=== PATIENT | male | born 1965 | race African-American/Black ===

== ENCOUNTER 2019-05-27 17:42 | Inpatient (IN) | payer OTHER ==
--- NOTE | 2019-05-27 17:48 | PDOC ---
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 The patient is asymptomatic at present, denying headache, visual or focal neurologic symptoms, chest pain, shortness of breath, abdominal pain, nausea, vomiting, diarrhea. Family history is significant for cardiac disease. - Physicial Exam PE: 05/27/19 18:14 Physical exam: Alert and oriented well-developed well-nourished no acute distress cooperative Afebrile, vital signs normal except for a significantly elevated blood pressure of 213/146. PERRLA, fundi benign, ENT clear Neck supple without bruit mass or nodes Chest clear with full breath sounds bilaterally S1 normal, slightly increased S2, regular without murmur rub or gallop pulses full and symmetric no JVD or edema no bruits Abdomen soft nontender without mass organomegaly Neurological C2 to 12 intact. Strength full and symmetric. No focal sensorimotor deficits. Gait stable and unimpaired Extremities no CCE Skin clear, no rash, adequate turgor and wet mucous membranes - Medical Decision Making 05/28/19 07:08 Assessment: Poorly controlled hypertension, on multiple medications in the past without clear evidence of control. Hypertensive urgency, but asymptomatic and no sign that there is an effect on end organs. Plan: Gradually lower blood pressure to acceptable level. Admit for observation and adequate blood pressure control. Counseling, cardiology consult , and further evaluation and treatment.
[2019-05-27 18:05] LABS: MCH 29.7 pg (25.7-33.7); WHITE BLOOD COUNT 3.5 K/mm3 (4.0-10.8)
[2019-05-27] MEDS ORDERED: LABETALOL HCL 5 MG/1 ML (100MG/20 ML VIAL) ONE (18:08)
[2019-05-27] MEDS ORDERED: amLODIPine BESYLATE 5 MG TABLET (FP) ONE (18:08)
[2019-05-27 18:09] LABS: HEMATOCRIT 42.4 % (35.4-49); HEMOGLOBIN 13.9 GM/dl (11.7-16.9); MCHC 32.8 g/dl (32.0-35.9); MEAN CELL VOLUME 90.7 fl (80-96); MEAN PLT VOLUME 12.6 fl (7.5-11.1); PLATELET COUNT 159 K/MM3 (134-434); RBC 4.68 M/mm3 (4.00-5.60); RDW 12.6 % (11.9-15.9)
[2019-05-27] MEDS ORDERED: amLODIPine BESYLATE 5 MG TABLET (FP) PO ONE (18:09)
[2019-05-27] MEDS ORDERED: LABETALOL HCL 5 MG/1 ML (100MG/20 ML VIAL) IVPUSH ONE (18:10)
--- NOTE | 2019-05-27 18:13 | HP ---
CHIEF COMPLAINT: Hypertension PCP: Charli HISTORY OF PRESENT ILLNESS: 54 year-old male with a PMH significant for HTN, HLD, CKD, and chronic low back pain. Patient presented to his PCP's office today with a complaint of bilateral flank/lower back pain R>L. Patient thought it might be his kidneys. His BP was 230/150 and he was told to come directly to the ED. Patient states he has been seeing doctors for years on on many medications to control his blood pressure but never with significant success. About a year ago he had a full renal workup which was unremarkable. He is not presently on any blood pressure meds. Patient denies chest pain, palpitations, SOB, RODRIGUEZ, diaphoresis, lower extremity edema. He denies headache, dizziness, lightheadedness, unsteady gait, or other focal neurological deficit. He states when he works an 80-week, he will develop visual changes which he attributes to fatigue. 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; works out regularly; 4 children; lives alone in [place] Smoking: quit 1988, smoked for 8-9 years Alcohol: never Drugs: quit marijuana and cocaine use in 1988; denies ever injecting drugs; denies steroid use Family history: Mother: 67 from toxic effects of anti-psychotics for bipolar disease; father alive 82 with HTN; sister age 40 kidney failure; brother alive 59 with HTN; brother 57 a&w No family history of DM, cancer, UT, CVA Allergies No Known Allergies Allergy (Verified 05/27/19 17:43) HOME MEDICATIONS: Home Medications Medication Instructions Recorded NK [No Known Home Medication] 05/27/19 REVIEW OF SYSTEMS CONSTITUTIONAL: Absent: fever, chills, diaphoresis, generalized weakness, malaise, loss of appetite, weight change HEENT: Absent: rhinorrhea, nasal congestion, throat pain, throat swelling, difficulty swallowing, mouth swelling, ear pain, eye pain, visual changes CARDIOVASCULAR: Absent: chest pain, syncope, palpitations, irregular heart rate, lightheadedness , peripheral edema RESPIRATORY: Absent: cough, shortness of breath, dyspnea with exertion, orthopnea, wheezing, stridor, hemoptysis GASTROINTESTINAL: Absent: abdominal pain, abdominal distension, nausea, vomiting, diarrhea, constipation, melena, hematochezia GENITOURINARY: Absent: dysuria, frequency, urgency, hesitancy, hematuria, flank pain, genital pain MUSCULOSKELETAL: Absent: myalgia, arthralgia, joint swelling, back pain, neck pain SKIN: Absent: rash, itching, pallor HEMATOLOGIC/IMMUNOLOGIC: Absent: easy bleeding, easy bruising, lymphadenopathy, frequent infections ENDOCRINE: Absent: unexplained weight gain, unexplained weight loss, heat intolerance, cold intolerance NEUROLOGIC: Absent: headache, focal weakness or paresthesias, dizziness, unsteady gait, seizure, mental status changes, bladder or bowel incontinence PSYCHIATRIC: Absent: anxiety, depression, suicidal or homicidal ideation, hallucinations. PHYSICAL EXAMINATION Vital Signs - 24 hr 05/27/19 05/27/19 17:42 18:03 Temperature 97.5 F L Pulse Rate 76 Pulse Rate [ 76 Apical] Respiratory 18 16 Rate Blood Pressure 214/139 H Blood Pressure 213/146 H [Left Arm] O2 Sat by Pulse 100 100 Oximetry (%) GENERAL: Awake, alert, and fully oriented, in no acute distress. HEAD: Normal with no signs of trauma. EYES: Pupils equal, round and reactive to light, extraocular movements intact, sclera anicteric, conjunctiva clear. LUNGS: Breath sounds equal, clear to auscultation bilaterally. No wheezes, and no crackles. No accessory muscle use. HEART: Regular rate and rhythm, normal S1 and S2 ABDOMEN: Soft, nontender, not distended MUSCULOSKELETAL: Normal range of motion at all joints. No bony deformities or tenderness. No CVA tenderness. UPPER EXTREMITIES: 2+ pulses, warm, well-perfused. No cyanosis. No clubbing. No peripheral edema. LOWER EXTREMITIES: 2+ pulses, warm, well-perfused. No calf tenderness. No peripheral edema. NEUROLOGICAL: Cranial nerves II-XII intact. Normal speech. ASSESSMENT/PLAN 54 year-old male with a PMH significant for HTN, HLD, CKD, and chronic low back pain. Admitted for hypertensive urgency. Hypertensive urgency --continue amlodipine started in ED; start hydralazine 10mg TID --TSH, A1C --cardiology consult requested Elevated creatinine Chronic kidney disease --diagnosis of CKD in PCP chart, no previous imaging or labs available --Cr 1.5, baseline unknown --US renal in am FEN Fluids: PO intake adequate Electrolytes: replete as indicated Nutrition: low sodium DVT prophylaxis: subq heparin Dispo: continues to require inpatient care. Full code. Visit type - Emergency Visit Emergency Visit: Yes ED Registration Date: 05/27/19 Care time: The patient presented to the Emergency Department on the above date and was hospitalized for further evaluation of their emergent condition. - New Patient This patient is new to me today: Yes Date on this admission: 05/27/19 - Critical Care Critical Care patient: No
--- NOTE | 2019-05-27 18:19 | PDOC ---
History of Present Illness - General Chief Complaint: Blood Pressure Problem Stated Complaint: SENT BY PMD FOR HTN Time Seen by Provider: 05/27/19 17:47 History Source: Patient Exam Limitations: No Limitations - History of Present Illness Initial Comments: Pt is a 54 yo M, with PMH of HTN (previously on HCTZ, norvasc, benecar, clonidine), who is presenting with hypertension (250/150) from PMD's office. Pt states he was previously on HTN medications, but "none of them worked" and his BP was regularly 180/110 even taking medications consistently. Pt stopped seeing his PMD and taking medications 2 years ago. Pt was at PMD office for complaints of b/l lower back pain, as he has been lifting more at work. Pt denies any fevers/chills, headache, vision changes, syncope, chest pain, palpitations, SOB, nausea/vomiting, abdominal pain, urinary symptoms, diarrhea/ constipation, or leg swelling. Pt states he has had renal US and echo on prior visits "and was normal". Allergies: NKDA PCP: Dr. Augustin Social: Pt denies any current cigarette, alcohol, or drug use. Remote use of cocaine x1/week. Pt denies any recent travel or sick contacts. Surgical: no relevant history. Family: multiple 1st degree relatives with HTN emergency and uncontrolled HTN despite medications 05/29/19 07:29 05/29/19 07:33 05/29/19 07:39 Past History - Travel Traveled outside of the country in the last 30 days: No Close contact w/someone who was outside of country & ill: No - Past Medical History Allergies/Adverse Reactions: Allergies Allergy/AdvReac Type Severity Reaction Status Date / Time No Known Allergies Allergy Verified 05/27/19 17:43 Home Medications: Ambulatory Orders Amlodipine Besylate [Norvasc -] 5 mg PO DAILY #30 tablet 05/28/19 hydrALAZINE HCL [Apresoline -] 10 mg PO TID #90 tablet 05/28/19 COPD: No - Psycho Social/Smoking Cessation Hx Smoking History: Never smoked Hx Alcohol Use: No Drug/Substance Use Hx: No Cardiac Specific PMH - Complaint Specific PMHX Abdominal Aortic Aneurysm: No Angina: No Cardiac Arrhythmia: No Cardiac Stent: No GERD: No Myocardial Infarction: No Pacemaker: No Pulmonary Embolus: No Valvular Heart Disease: No Peripheral Vascular Disease: No Review of Systems - Review of Systems Able to Perform ROS?: Yes Is the patient limited Romansh proficient: No Constitutional: Yes: Weight Stable. No: Chills, Fever, Loss of Appetite, Malaise, Weakness HEENTM: No: Blurred Vision, Recent change in vision, Double Vision, Nose Congestion, Nose Bleeding, Throat Pain Respiratory: No: Cough, Orthopnea, Shortness of Breath Cardiac (ROS): No: Chest Pain, Edema, Irregular Heart Rate, Lightheadedness, Palpitations, Syncope, Chest Tightness ABD/GI: No: Constipated, Diarrhea, Nausea, Poor Appetite, Poor Fluid Intake, Vomiting, Abdominal cramping : Yes: Flank Pain. No: Burning, Dysuria, Frequency, Hematuria, Pain, Urgency Musculoskeletal: Yes: Back Pain. No: Joint Pain, Joint Swelling, Muscle Pain, Muscle Weakness, Neck Pain Integumentary: No: Rash Neurological: No: Headache, Numbness, Paresthesia, Seizure, Tingling, Unsteady Gait, Dizziness Psychiatric: No: Stressors, Sleep Pattern Change, Emotional Problems, Change in Appetite Endocrine: No: Increased Urine, Change in Weight Hematologic/Lymphatic: No: Anemia, Blood Clots, Easy Bleeding, Easy Bruising All Other Systems: Reviewed and Negative *Physical Exam - Vital Signs Last Vital Signs Temp Pulse Resp BP Pulse Ox 97.9 F 66 20 172/113 H 98 05/28/19 14:00 05/28/19 14:00 05/28/19 14:00 05/28/19 14:00 05/28/19 05:00 - Physical Exam Comments: HTN (214/139 on exam), pt afebrile. Pt in NAD, normal body habitus. Resting comfortably on the stretcher. Pt alert and oriented x3. 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 No midline spinal tenderness, step-offs, or crepitus. +Reproducible paraspinal TTP over R lower back. Head normocephalic, atraumatic. Eyes PERRLA, EOMI. Oropharynx without erythema or exudates, no LAD b/l. No nasal congestion. Hearing intact. Clear heart sounds, S1/S2, no JVD, b/l pedal edema, or heart murmur. Clear lung sounds, no respiratory distress, wheezes, crackles, or accessory muscle use. No abdominal or CVA tenderness to palpation, no rebound, no guarding. Abdomen soft, non-distended, and with normoactive bowel sounds. Skin without jaundice or rash. 05/29/19 07:35 ED Treatment Course - LABORATORY CBC & Chemistry Diagram: 05/28/19 07:28 05/28/19 07:28 - ADDITIONAL ORDERS Additional order review: 05/27/19 17:58 RBC 4.68 MCV 90.7 MCHC 32.8 RDW 12.6 MPV 12.6 H Neutrophils % No Result Required. Lymphocytes % No Result Required. - Medications Given in the ED: ED Medications Discontinued Medications Generic Name Dose Route Start Last Admin Trade Name Freq PRN Reason Stop Dose Admin Amlodipine Besylate 5 mg 05/27/19 18:09 05/27/19 18:14 Norvasc - PO 05/27/19 18:10 5 mg ONCE ONE Administration Amlodipine Besylate 5 mg 05/28/19 10:00 05/28/19 09:19 Norvasc - PO 5 mg DAILY SINDY Administration Heparin Sodium (Porcine) 5,000 unit 05/28/19 06:00 05/28/19 14:57 Heparin - SQ Not Given TID SINDY Hydralazine HCl 10 mg 05/27/19 20:41 05/27/19 20:53 Apresoline Injection - IVPUSH 05/27/19 20:42 10 mg ONCE ONE Administration Hydralazine HCl 10 mg 05/27/19 22:00 05/28/19 14:56 Apresoline - PO 10 mg TID SINDY Administration Labetalol HCl 10 mg 05/27/19 18:10 05/27/19 18:14 Normodyne Injection - IVPUSH 05/27/19 18:11 10 mg ONCE ONE Administration Labetalol HCl 100 mg 05/27/19 22:00 05/27/19 21:09 Normodyne - PO 100 mg BID SINDY Administration Medical Decision Making - Medical Decision Making Pt was seen at bedside, also will be seen by attending Dr. Osei. Pt presenting with HTN from PCP office, no signs of end-organ damage (denies headache, vision changes, chest pain, urinary symptoms). Pt has uncontrolled HTN despite multiple HTN medications, although not taking currently. Pt should be admitted to telemetry for further BP control and to possibly evaluate for causes (renal US, etc). Provided 5 mg PO amlodipine and 10 mg IV labetalol for improvement of HTN. Will continue to reassess pt and monitor for symptomatic improvement. Ordered labs, ECG, UA Pt signed out to night team to follow labs and stabilize until admission. Pt resting comfortably, continues to be asymptomatic. 05/29/19 07:36 Discharge - Discharge Information Problems reviewed: Yes Clinical Impression/Diagnosis: HTN (hypertension) Qualifiers: Hypertension type: unspecified Qualified Code(s): I10 - Essential (primary) hypertension Condition: Stable - Admission Yes - Follow up/Referral - Patient Discharge Instructions - Post Discharge Activity
[2019-05-27 18:26] LABS: ALBUMIN 4.2 g/dl (3.4-5.0); BILIRUBIN,TOTAL 0.5 mg/dl (0.2-1); CALCIUM 9.3 mg/dl (8.5-10); CREATININE 1.5 mg/dl (0.55-1.3); POTASSIUM 3.8 mmol/L (3.5-5.1); TOT PROT 7.4 g/dl (6.4-8.2)
[2019-05-27] MEDS ORDERED: hydrALAZINE HCL 20 MG/ML VIAL IVPUSH ONE (20:41)
[2019-05-27] MEDS ORDERED: LABETALOL HCL 200 MG TABLET (FP) ONE (21:02)
[2019-05-27 21:59] VITALS: BMI 27.1
[2019-05-27] MEDS ORDERED: LABETALOL HCL 100 MG TABLET (FP) PO SCH (22:00)
[2019-05-27 22:14] LABS: COCAINE, UR NEGATIVE ng/ml (CUTOFF=300); METHADONE, UR NEGATIVE ng/ml (CUTOFF=300); OPIATES, URI NEGATIVE ng/ml (CUTOFF=300); PHENCYCLIDINE,URINE NEGATIVE ng/ml (CUTOFF=25); URINE AMPHETAMINES NEGATIVE ng/ml (CUTOFF=500); URINE BARBITURATES NEGATIVE ng/ml (CUTOFF=200); URINE BENZODIAZEPINES NEGATIVE ng/ml (CUTOFF=200)
[2019-05-27 23:32] LABS: ANISOCYTOSIS 1+; TARGET CELLS 1+
[2019-05-27 23:33] LABS: PLATELET ESTIMATE ADEQUATE
[2019-05-28] MEDS: hydrALAZINE HCL 10 MG TABLET PO SCH ×3 (00:06→14:56)
[2019-05-28] MEDS: HEPARIN NA (PORCINE) 5,000 UNITS/ML 1ML VIAL SQ SCH ×2 (06:54→14:57)
[2019-05-28 08:01] LABS: BASO % 0.9 % (0-2.0); EOS % 4.4 % (0-4.5); HEMATOCRIT 39.6 % (35.4-49); HEMOGLOBIN 13.2 GM/dl (11.7-16.9); LYMPH % 29.2 % (8-40); MCH 30.6 pg (25.7-33.7); MCHC 33.3 g/dl (32.0-35.9); MEAN CELL VOLUME 91.8 fl (80-96); MEAN PLT VOLUME 12.5 fl (7.5-11.1); MONO % 13.4 % (3.8-10.2); NEUT % 52.1 % (42.8-82.8); PLATELET COUNT 126 K/MM3 (134-434); RBC 4.31 M/mm3 (4.00-5.60); RDW 13.1 % (11.9-15.9); WHITE BLOOD COUNT 3.1 K/mm3 (4.0-10.8)
[2019-05-28 08:06] LABS: ALBUMIN 3.5 g/dl (3.4-5.0); BILIRUBIN,TOTAL 0.5 mg/dl (0.2-1); CREATININE 1.5 mg/dl (0.55-1.3); PHOSPHOROUS 3.5 mg/dl (2.5-4.9); POTASSIUM 3.8 mmol/L (3.5-5.1); TOT PROT 6.2 g/dl (6.4-8.2)
[2019-05-28] MEDS ORDERED: amLODIPine BESYLATE 5 MG TABLET (FP) PO SCH (10:00)
--- NOTE | 2019-05-28 12:00 | EKG ---
Test Reason : Blood Pressure : / mmHG Vent. Rate : 065 BPM Atrial Rate : 065 BPM P-R Int : 162 ms QRS Dur : 098 ms QT Int : 394 ms P-R-T Axes : 052 012 101 degrees QTc Int : 409 ms NORMAL SINUS RHYTHM T WAVE ABNORMALITY, CONSIDER LATERAL ISCHEMIA ABNORMAL ECG NO PREVIOUS ECGS AVAILABLE Confirmed by CANDY GREWAL MD ([id number]) on 05/28/2019 12:00:06 PM Referred By: MD GAMEZ Confirmed By:CANDY GREWAL MD
[2019-05-28 14:10] VITALS: BP 172/113; PULSE 66; TEMP 97.9
--- NOTE | 2019-05-28 14:55 | CON.CARD ---
Consult Consult Specialty:: Cardiology Referred by:: Medicine Reason for Consultation:: HTN - History of Present Illness Chief Complaint: HTN History of Present Illness: 54M h/o HTN, HLD, CKD p/w lower back pain worse on R side, BP 230/150, advised to go to ER from PCP office. Has been on several BP meds in the past with history of poorly controlled BP. Not taking meds prior to admission, here received amlodipine, hydralazine with improvement in BP. No chest pain, palps, dizziness, dyspnea - Alcohol/Substance Use Hx Alcohol Use: No - Smoking History Smoking history: Never smoked Home Medications - Allergies Allergies/Adverse Reactions: Allergies Allergy/AdvReac Type Severity Reaction Status Date / Time No Known Allergies Allergy Verified 05/27/19 17:43 - Home Medications Home Medications: Ambulatory Orders NK [No Known Home Medication] 05/27/19 Family Medical History Family History: Unremarkable Review of Systems - Review of Systems Constitutional: reports: No Symptoms Eyes: reports: No Symptoms HENT: reports: No Symptoms Neck: reports: No Symptoms Cardiovascular: reports: No Symptoms Respiratory: reports: No Symptoms Gastrointestinal: reports: No Symptoms Genitourinary: reports: No Symptoms Musculoskeletal: reports: No Symptoms Integumentary: reports: No Symptoms Neurological: reports: No Symptoms Endocrine: reports: No Symptoms Hematology/Lymphatic: reports: No Symptoms Psychiatric: reports: No Symptoms Vital Signs: Vital Signs Temperature 97.9 F 05/28/19 14:00 Pulse Rate 66 05/28/19 14:00 Respiratory Rate 20 05/28/19 14:00 Blood Pressure 172/113 H 05/28/19 14:00 O2 Sat by Pulse Oximetry (%) 98 05/28/19 05:00 Constitutional: Yes: Well Nourished, No Distress, Calm Eyes: Yes: Conjunctiva Clear, EOM Intact HENT: Yes: Atraumatic, Normocephalic Neck: Yes: Supple, Trachea Midline Respiratory: Yes: Regular, CTA Bilaterally Gastrointestinal: Yes: Normal Bowel Sounds, Soft Cardiovascular: Yes: Regular Rate and Rhythm JVD: No Heart Sounds: Yes: S1, S2 Extremities: No: Cold Edema: No Integumentary: No: Jaundice Neurological: Yes: Alert, Oriented Psychiatric: No: Agitated - Other Data Labs, Other Data: CBC, BMP 05/28/19 07:28 05/28/19 07:28 Troponin, BNP 05/27/19 05/28/19 17:54 01:00 Troponin I < 0.03 < 0.02 Troponin, BNP 05/27/19 05/28/19 17:54 01:00 Troponin I < 0.03 < 0.02 Assessment/Plan EKG: sinus, nl intervals, lat TWI no prior CXR: no acute process tele: sinus Hypertensive urgency - improving with amlodipine and hydralazine, continue for now, likely will need additional agent - per patient BP normally 160s-170s/100s-110s - improved now, was not taking meds at home - in the past had tried several medications although it is unclear if he was taking consistently as he came in off meds - advised patient CV risk of HTN and need for close outpatient follow up - echo pending, if benign findings no further inpatient cardiac workup CKD - likely 2/2 HTN, baseline Cr not known - renal follow up HLD - not on statin
--- NOTE | 2019-05-28 15:39 | ECHO ---
Name: TRIPP MCGINNIS Exam:Adult Echocardiogram Study Date: 05/28/2019 12:41 PM Age: 54 yrs Reason For Study: HTN Height: 70 in Weight: 196 lb BSA: 2.1 m2 MMode/2D Measurements & Calculations IVSd: 1.2 cm Ao root diam: 3.9 cm LVIDd: 5.1 cm LA dimension: 3.6 cm LVIDs: 2.9 cm LVPWd: 1.2 cm EDV(Teich): 122.0 ml LVOT diam: 2.0 cm ESV(Teich): 31.3 ml Doppler Measurements & Calculations MV E max abril: 108.4 cm/sec MV A max abril: 50.4 cm/sec MV dec slope: 358.8 cm/sec2 MV E/A: 2.2 Ao V2 max: 174.0 cm/sec LV V1 max P.1 mmHg Ao max P.1 mmHg LV V1 max: 133.2 cm/sec GATO(V,D): 2.4 cm2 MR max abril: 394.1 cm/sec TR max abril: 231.5 cm/sec MR max P.3 mmHg TR max P.5 mmHg PA V2 max: 133.5 cm/sec PI end-d abril: 100.8 cm/sec PA max P.1 mmHg Procedure A complete two-dimensional transthoracic echocardiogram was performed (2D, M-mode, Doppler and color flow Doppler). Left Ventricle There is mild concentric left ventricular hypertrophy. The left ventricular ejection fraction is norm al. Ejection Fraction = 55-60%. The left ventricular wall motion is normal. Right Ventricle The right ventricle is normal in size and function. Atria Normal left and right atrial size and function. Mitral Valve There is mild mitral regurgitation. Tricuspid Valve No tricuspid regurgitation. Aortic Valve The aortic valve is trileaflet. No hemodynamically significant valvular aortic stenosis. No aortic regurgitation is present. Pulmonic Valve Trace pulmonic valvular regurgitation. Great Vessels Mild aortic root dilatation. Pericardium/Pleura There is no pericardial effusion. Interpretation Summary There is mild concentric left ventricular hypertrophy. The left ventricular ejection fraction is normal. The right ventricle is normal in size and function. There is mild mitral regurgitation. Trace pulmonic valvular regurgitation. Mild aortic root dilatation. MD Juwan Spann 05/28/2019 03:38 PM
--- NOTE | 2019-05-28 16:31 | DS ---
Physical Exam: SUBJECTIVE: Patient seen and examined OBJECTIVE: Vital Signs Period Temp Pulse Resp BP Sys/Steward Pulse Ox Last 24 Hr 97.5 F-98.5 F 54-76 16-20 164-214/96-146 98-100 PHYSICAL EXAM GENERAL: The patient is awake, alert, and fully oriented, in no acute distress. HEAD: Normal with no signs of trauma. EYES: PERRL, extraocular movements intact, sclera anicteric, conjunctiva clear. ENT: Ears normal, nares patent, oropharynx clear without exudates, moist mucous membranes. NECK: Trachea midline, full range of motion, supple. LUNGS: Breath sounds equal, clear to auscultation bilaterally, no wheezes, no crackles, no accessory muscle use. HEART: Regular rate and rhythm, S1, S2 without murmur, rub or gallop. ABDOMEN: Soft, nontender, nondistended, normoactive bowel sounds, no guarding, no rebound, no hepatosplenomegaly, no masses. EXTREMITIES: 2+ pulses, warm, well-perfused, no edema. NEUROLOGICAL: Cranial nerves II through XII grossly intact. Normal speech, gait not observed. PSYCH: Normal mood, normal affect. SKIN: Warm, dry, normal turgor, no rashes or lesions noted. LABS Laboratory Results - last 24 hr 05/27/19 05/27/19 05/27/19 07:21 17:54 17:54 WBC RBC Hgb Hct MCV MCH MCHC RDW Plt Count MPV Absolute Neuts (auto) Neutrophils % Neutrophils % (Manual) Band Neutrophils % Lymphocytes % Lymphocytes % (Manual) Monocytes % Monocytes % (Manual) Eosinophils % Eosinophils % (Manual) Basophils % Hypersegmented Neuts Smudge Cells Hypochromia Platelet Estimate Platelet Comment Anisocytosis Microcytosis Target Cells Sodium 141 Potassium 3.8 Chloride 106 Carbon Dioxide 30 Anion Gap 5 L BUN 17.0 Creatinine 1.5 H Est GFR (CKD-EPI)AfAm 60.73 Est GFR (CKD-EPI)NonAf 52.40 Random Glucose 98 Hemoglobin A1c % Calcium 9.3 Phosphorus Magnesium Total Bilirubin 0.5 AST 23 ALT 21 Alkaline Phosphatase 72 Creatine Kinase 146 Troponin I < 0.03 Total Protein 7.4 Albumin 4.2 TSH Urine Color Urine Appearance Urine pH Urine Protein Urine Glucose (UA) Urine Ketones Urine Blood Urine Nitrite Urine Bilirubin Urine Urobilinogen Ur Leukocyte Esterase Opiates Screen Negative Methadone Screen Negative Barbiturate Screen Negative Phencyclidine Screen Negative Ur Amphetamines Screen Negative MDMA (Ecstasy) Screen Negative Benzodiazepines Screen Negative Cocaine Screen Negative U Marijuana (THC) Screen Negative 05/27/19 05/27/19 05/28/19 17:58 19:21 01:00 WBC 3.5 L RBC 4.68 Hgb 13.9 Hct 42.4 MCV 90.7 MCH 29.7 MCHC 32.8 RDW 12.6 Plt Count 159 MPV 12.6 H Absolute Neuts (auto) 1.6 Neutrophils % No Result Required. Neutrophils % (Manual) 59.0 Band Neutrophils % 1.0 Lymphocytes % No Result Required. Lymphocytes % (Manual) 26.0 Monocytes % Monocytes % (Manual) 12 H Eosinophils % Eosinophils % (Manual) 2.0 Basophils % Hypersegmented Neuts 1+ Smudge Cells No Result Required. Hypochromia 2+ Platelet Estimate Adequate Platelet Comment Rare giant plts Anisocytosis 1+ Microcytosis 2+ Target Cells 1+ Sodium Potassium Chloride Carbon Dioxide Anion Gap BUN Creatinine Est GFR (CKD-EPI)AfAm Est GFR (CKD-EPI)NonAf Random Glucose Hemoglobin A1c % Calcium Phosphorus Magnesium Total Bilirubin AST ALT Alkaline Phosphatase Creatine Kinase 93 Troponin I < 0.02 Total Protein Albumin TSH Urine Color Yellow Urine Appearance Clear Urine pH 7.5 Urine Protein Negative Urine Glucose (UA) Negative Urine Ketones Negative Urine Blood Negative Urine Nitrite Negative Urine Bilirubin Negative Urine Urobilinogen 0.2 Ur Leukocyte Esterase Negative Opiates Screen Methadone Screen Barbiturate Screen Phencyclidine Screen Ur Amphetamines Screen MDMA (Ecstasy) Screen Benzodiazepines Screen Cocaine Screen U Marijuana (THC) Screen 05/28/19 05/28/19 05/28/19 07:28 07:28 07:28 WBC 3.1 L RBC 4.31 Hgb 13.2 Hct 39.6 MCV 91.8 MCH 30.6 MCHC 33.3 RDW 13.1 Plt Count 126 L D MPV 12.5 H Absolute Neuts (auto) 1.7 Neutrophils % 52.1 Neutrophils % (Manual) Band Neutrophils % Lymphocytes % 29.2 Lymphocytes % (Manual) Monocytes % 13.4 H Monocytes % (Manual) Eosinophils % 4.4 Eosinophils % (Manual) Basophils % 0.9 Hypersegmented Neuts Smudge Cells Hypochromia Platelet Estimate Platelet Comment Anisocytosis Microcytosis Target Cells Sodium 140 Potassium 3.8 Chloride 104 Carbon Dioxide 28 Anion Gap 8 BUN 15.0 Creatinine 1.5 H Est GFR (CKD-EPI)AfAm 60.73 Est GFR (CKD-EPI)NonAf 52.40 Random Glucose 143 H Hemoglobin A1c % 5.8 Calcium 9.0 Phosphorus 3.5 Magnesium 2.0 Total Bilirubin 0.5 AST 18 ALT 17 Alkaline Phosphatase 59 D Creatine Kinase Troponin I Total Protein 6.2 L Albumin 3.5 TSH 1.34 Urine Color Urine Appearance Urine pH Urine Protein Urine Glucose (UA) Urine Ketones Urine Blood Urine Nitrite Urine Bilirubin Urine Urobilinogen Ur Leukocyte Esterase Opiates Screen Methadone Screen Barbiturate Screen Phencyclidine Screen Ur Amphetamines Screen MDMA (Ecstasy) Screen Benzodiazepines Screen Cocaine Screen U Marijuana (THC) Screen HOSPITAL COURSE: Date of Admission:05/27/19 Date of Discharge: 05/28/19 Minutes to complete discharge: 35 Discharge Summary Reason For Visit: HYPERTENSION Condition: Stable - Instructions Referrals: Josh Augustin MD [Primary Care Provider] - - Home Medications Comprehensive Discharge Medication List: Ambulatory Orders NK [No Known Home Medication] 05/27/19 This patient is new to me today: No Emergency Visit: Yes ED Registration Date: 05/27/19 Care time: The patient presented to the Emergency Department on the above date and was hospitalized for further evaluation of their emergent condition. Critical Care patient: No - Discharge Referral Referred to [facility] Med P.C[facility] No
--- NOTE | 2019-05-29 13:34 | EKG ---
Test Reason : Blood Pressure : / mmHG Vent. Rate : 059 BPM Atrial Rate : 059 BPM P-R Int : 164 ms QRS Dur : 094 ms QT Int : 412 ms P-R-T Axes : 050 005 113 degrees QTc Int : 407 ms SINUS BRADYCARDIA CANNOT RULE OUT ANTERIOR INFARCT , AGE UNDETERMINED T WAVE ABNORMALITY, CONSIDER LATERAL ISCHEMIA ABNORMAL ECG WHEN COMPARED WITH ECG OF 27-MAY-2019 18:00, NO SIGNIFICANT CHANGE WAS FOUND Confirmed by KELLEY FRANCES MD ([id number]) on 05/29/2019 1:34:16 PM Referred By: MIMI KHAN Confirmed By:KELLEY FRANCES MD
== END 2019-05-28 18:00 | disposition home or self-care (01) | DRG 305 ==
LOC: FER 17:42 → FM/S 21:01
PROVIDERS: ADMIT Internal Medicine; ATTEND Nurse Practitioner Acute Care
DX: I16.0 Hypertensive urgency (principal); I12.9 Hypertensive chronic kidney disease with stage 1 through stage 4 chronic kidney disease, or unspecified chronic kidney disease; N18.9 Chronic kidney disease, unspecified; E78.5 Hyperlipidemia, unspecified; M54.5 Low back pain
CPT/HCPCS: 36415; 71045-TC-FY; 76775-TC; 80053; 80307; 81003; 82550; 83036; 83735; 84100; 84443; 84484; 85025; 93005; 93306-TC; 99285-25; J1644

== ENCOUNTER 2019-10-14 12:11 | Inpatient (IN) | payer OTHER ==
--- NOTE | 2019-10-14 12:32 | PDOC ---
History of Present Illness - General Chief Complaint: Chest Pain Stated Complaint: POSITIVE TROP, RETURNED AFTER AMAM History Source: Patient Exam Limitations: No Limitations - History of Present Illness Initial Comments: 10/14/19 12:29 54 yo male h/o htn here with elevated bp c/o sob, pt was seen earlier today found to be in hypertensive emergency with intial bp 210/130. ekg with new changes and positive troponin. had to leave ama, is back for admission few hours later. Past History - Past Medical History Allergies/Adverse Reactions: Allergies Allergy/AdvReac Type Severity Reaction Status Date / Time No Known Allergies Allergy Verified 10/14/19 12:16 Home Medications: Ambulatory Orders Hydralazine HCl 25 mg PO TID 10/14/19 Nifedipine ER [Procardia XL -] 30 mg PO DAILY 10/14/19 Anemia: No COPD: No HTN: Yes Hypercholesterolemia: Yes - Psycho Social/Smoking Cessation Hx Smoking History: Never smoked Have you smoked in the past 12 months: No Information on smoking cessation initiated: No Hx Alcohol Use: No Drug/Substance Use Hx: No Substance Use Type: None Review of Systems - Review of Systems Constitutional: No: Chills, Diaphoresis, Fever HEENTM: No: Eye Pain Respiratory: Yes: Shortness of Breath. No: Cough Cardiac (ROS): No: Chest Pain ABD/GI: No: Nausea, Vomiting : No: Burning, Dysuria Musculoskeletal: Yes: Back Pain All Other Systems: Reviewed and Negative *Physical Exam - Vital Signs Last Vital Signs Temp Pulse Resp BP Pulse Ox 98.6 F 80 20 193/131 H 98 10/14/19 12:12 10/14/19 12:12 10/14/19 12:12 10/14/19 12:12 10/14/19 12:12 - Physical Exam 10/14/19 12:30 awake alert lungs clear bilat heart rrr no mrg abd soft nt nd ext wwp no edema no calf tenderness. nuero alert oriented x 3 Heart Score/ECG Review #1 General ECG Interpretation: Sinus Rhythm, Normal Rate (74 TWI AVF, II, I VL, V4 - V6), Normal Intervals, No acute ischemic changes Medical Decision Making - Medical Decision Making 10/14/19 12:32 54 yo male htn emergecy positive troponin. will admit for bp control. serial trops and ekg changes. 10/14/19 13:34 dr dubois paged for dr faith 10/14/19 14:37 d/w dr edwards, will see pt in hospital. second trop sent and pending. repeat EKG unchanged for prior today 10/14/19 14:52t troponin is going up. paged grace to update. heparin gtt ordered Discharge - Discharge Information Problems reviewed: Yes Clinical Impression/Diagnosis: NSTEMI (non-ST elevated myocardial infarction), HTN (hypertension) - Admission Yes - Follow up/Referral - Patient Discharge Instructions - Post Discharge Activity
[2019-10-14] MEDS ORDERED: NITROGLYCERIN 2% OINTMENT - 1GM PACKET TD ONE ×2 (13:58→14:06)
[2019-10-14] MEDS ORDERED: NITROGLYCERIN SUBLINGUAL 1/150 0.4 MG TAB SL ONE (14:49)
[2019-10-14] MEDS ORDERED: HEPARIN NA (PORCINE) 5,000 UNITS/ML 1ML VIAL IVPUSH PRN ×2 (14:51)
[2019-10-14] MEDS ORDERED: NITROGLYCERIN SUBLINGUAL 1/150 0.4 MG TAB ONE (14:52)
--- NOTE | 2019-10-14 14:59 | EKG ---
Test Reason : Blood Pressure : / mmHG Vent. Rate : 074 BPM Atrial Rate : 074 BPM P-R Int : 156 ms QRS Dur : 094 ms QT Int : 372 ms P-R-T Axes : 057 015 142 degrees QTc Int : 412 ms NORMAL SINUS RHYTHM T WAVE ABNORMALITY, CONSIDER LATERAL ISCHEMIA ABNORMAL ECG WHEN COMPARED WITH ECG OF 14-OCT-2019 08:06, NO SIGNIFICANT CHANGE WAS FOUND Confirmed by Jone Lovett ([id number]) on 10/14/2019 2:58:58 PM Referred By: Byron TOURE Confirmed By:Jone Lovett
[2019-10-14] MEDS ORDERED: HEPARIN INFUSION - 25,000 UNITS/500 ML INFUS.BAG IVPB ONE (15:11)
[2019-10-14 15:16] LABS: EPITHELIAL CELLS FEW /hpf; URINE MUCUS 1+
[2019-10-14] MEDS ORDERED: HEPARIN NA (PORCINE) 5,000 UNITS/ML 1ML VIAL ONE (15:16)
[2019-10-14] MEDS: HEPARIN INFUSION - 25,000 UNITS/500 ML INFUS.BAG IVPB SCH (15:20)
--- NOTE | 2019-10-14 15:23 | CON.CARD ---
Cardiology Consult (text) - Consultation Consultation Note: Chief Complaint: sob, back spasm History of Present Illness: 54M h/o HTN, HLD, CKD p/w low/mid back pain and mild sob. Past week he has had 2 episodes of muscle spasm in back. Sometimes mild sob when he takes deep breaths and back spasm hurts. No cp. No loc pnd orthopnea le edema dizzy. In ER had elevated bp and pos trop. - Alcohol/Substance Use Hx Alcohol Use: No - Smoking History Smoking history: Never smoked Home Medications - Allergies Allergies/Adverse Reactions: Allergies Allergy/AdvReac Type Severity Reaction Status Date / Time No Known Allergies Allergy Verified 10/14/19 12:16 Home Medications Medication Instructions Recorded Hydralazine HCl 25 mg PO TID 10/14/19 Nifedipine ER [Procardia XL -] 30 mg PO DAILY 10/14/19 Family Medical History Family History: Unremarkable Review of Systems - Review of Systems Constitutional: reports: No Symptoms Eyes: reports: No Symptoms HENT: reports: No Symptoms Neck: reports: No Symptoms Cardiovascular: reports: No Symptoms Gastrointestinal: reports: No Symptoms Genitourinary: reports: No Symptoms Integumentary: reports: No Symptoms Neurological: reports: No Symptoms Endocrine: reports: No Symptoms Hematology/Lymphatic: reports: No Symptoms Psychiatric: reports: No Symptoms Vital Signs: Vital Signs Period Temp Pulse Resp BP Sys/Steward Pulse Ox Last 24 Hr 98.0 F-98.6 F 74-86 15-20 180-196/106-131 98-100 Constitutional: Yes: Well Nourished, No Distress, Calm Eyes: Yes: Conjunctiva Clear, EOM Intact HENT: Yes: Atraumatic, Normocephalic Neck: Yes: Supple, Trachea Midline Respiratory: Yes: Regular, CTA Bilaterally Gastrointestinal: Yes: Normal Bowel Sounds, Soft Cardiovascular: Yes: Regular Rate and Rhythm JVD: No Heart Sounds: Yes: S1, S2 Extremities: No: Cold Edema: No Integumentary: No: Jaundice diaphoresis Neurological: Yes: Alert, Oriented Psychiatric: No: Agitated - Other Data Labs, Other Data: Laboratory Last Values Troponin I 7.28 ng/ml (0.00-0.05) H* 10/14/19 14:00 Urine Color Joann 10/14/19 14:30 Urine Appearance Clear 10/14/19 14:30 Urine pH 5.5 (4.5-8) D 10/14/19 14:30 Urine Protein 3+ (NEGATIVE) H 10/14/19 14:30 Urine Glucose (UA) Negative (NEGATIVE) 10/14/19 14:30 Urine Ketones Trace (NEGATIVE) 10/14/19 14:30 Urine Blood Negative (NEGATIVE) 10/14/19 14:30 Urine Nitrite Negative (NEGATIVE) 10/14/19 14:30 Urine Bilirubin Negative (NEGATIVE) 10/14/19 14:30 Urine Urobilinogen 0.2 (0.2-1.0) 10/14/19 14:30 Ur Leukocyte Esterase Negative (NEGATIVE) 10/14/19 14:30 Urine RBC 0-2 /hpf (0-4) 10/14/19 14:30 Urine WBC 2-5 (NEGATIVE) 10/14/19 14:30 Ur Transition Epith Cell Few /hpf 10/14/19 14:30 Urine Mucus 1+ 10/14/19 14:30 Assessment/Plan EKG: sinus, nl intervals, lat TWI, no st changes CXR: no acute process echo 05/2019: lvh, otherwise unremarkable 54M h/o HTN, HLD, CKD p/w low/mid back pain and mild sob. nstemi: -trop elevation/pattern c/w acs -no st changes on ecg -pt has no cardiac sxs, stable -start hep gtt for 48 hours -start asa, plavix, statin -check echo -admit to tele -will likely need cath prior to dc based on clinical course Hypertensive urgency - will resume home meds at higher doses, hydralazine and nifed. HLD -started atorva here
[2019-10-14] MEDS ORDERED: CLOPIDOGREL BISULFATE 300 MG TABLET PO ONE (15:25)
[2019-10-14] MEDS ORDERED: HEPARIN NA (PORCINE) 5,000 UNITS/ML 1ML VIAL IVPUSH ONE (15:25)
[2019-10-14] MEDS ORDERED: LABETALOL HCL 5 MG/1 ML (100MG/20 ML VIAL) ONE (15:29)
[2019-10-14 15:30] LABS: ACTIVATED PTT 25.5 SECONDS (25.2-36.5)
[2019-10-14] MEDS ORDERED: LABETALOL HCL 5 MG/1 ML (100MG/20 ML VIAL) IVPUSH ONE (15:32)
[2019-10-14 15:35] LABS: INR 1.15 (0.82-1.09); PROTHROMBIN TIME (PATIENT) 12.8 SEC (10.2-13.0)
[2019-10-14] MEDS ORDERED: CLOPIDOGREL BISULFATE 300 MG TABLET ONE (15:53)
[2019-10-14 16:59] VITALS: BMI 28.0
[2019-10-14 17:01] LABS: CHOLESTEROL 176 mg/dl (50-200); HDL CHOLESTEROL 54 mg/dl (40-60); TRIGLYCERIDES 48 mg/dl (0-150)
[2019-10-14 17:02] LABS: LDL CHOLESTEROL (ONLY SJRH) 112 mg/dL (5-100)
--- NOTE | 2019-10-14 17:47 | PN ---
Progress Note, Physician - Current Medication List Current Medications: Active Medications Aspirin (Asa -) 81 mg PO DAILY COUNT INCLUDES [facility] Atorvastatin Calcium (Lipitor -) 80 mg PO HS SINDY Clopidogrel Bisulfate (Plavix -) 75 mg PO DAILY COUNT INCLUDES [facility] Heparin Sodium (Porcine) (Heparin -) 1,000 unit IVPUSH PRN PRN PRN Reason: Heparin Heparin Sodium (Porcine) (Heparin -) 5,000 unit IVPUSH PRN PRN PRN Reason: Heparin Last Admin: 10/14/19 15:15 Dose: 5,000 unit Documented by: Hydralazine HCl (Apresoline -) 50 mg PO TID COUNT INCLUDES [facility] Heparin Sodium/Dextrose (Heparin Infusion -) 25,000 units in 500 mls @ 16 mls/hr IVPB TITR SINDY; Protocol Last Admin: 10/14/19 15:20 Dose: 800 units/hr, 16 mls/hr Documented by: Metoprolol Tartrate (Lopressor -) 25 mg PO BID COUNT INCLUDES [facility] Nifedipine (Procardia Xl -) 60 mg PO DAILY SINDY - Objective Vital Signs: Vital Signs Temperature 98.4 F 10/14/19 16:40 Pulse Rate 65 10/14/19 16:40 Respiratory Rate 17 10/14/19 16:40 Blood Pressure 167/105 H 10/14/19 16:40 O2 Sat by Pulse Oximetry (%) 98 10/14/19 15:58 Labs: INR, PTT INR 1.15 (0.82-1.09) 10/14/19 15:00
--- NOTE | 2019-10-14 17:50 | HP ---
Admitting History and Physical - Past Medical History Cardiovascular: Yes: HTN, Hyperlipdemia Renal/: Yes: Renal Inusuff - Smoking History Smoking history: Never smoked Have you smoked in the past 12 months: No - Alcohol/Substance Use Hx Alcohol Use: No Home Medications - Allergies Allergies/Adverse Reactions: Allergies Allergy/AdvReac Type Severity Reaction Status Date / Time No Known Allergies Allergy Verified 10/14/19 12:16 - Home Medications Home Medications: Ambulatory Orders Hydralazine HCl 25 mg PO TID 10/14/19 Nifedipine ER [Procardia XL -] 30 mg PO DAILY 10/14/19 Physical Examination Vital Signs: Vital Signs Temperature 98.4 F 10/14/19 16:40 Pulse Rate 65 10/14/19 16:40 Respiratory Rate 17 10/14/19 16:40 Blood Pressure 167/105 H 10/14/19 16:40 O2 Sat by Pulse Oximetry (%) 98 10/14/19 15:58 Cardiovascular: Yes: Murmur, S1, S2 Respiratory: Yes: Regular, CTA Bilaterally Gastrointestinal: Yes: Normal Bowel Sounds, Soft. No: Tenderness Neurological: Yes: Alert, Oriented Problem List - Problems (1) ACS (acute coronary syndrome) Assessment/Plan: cardio noted follow ce may need transfer on heparin drip Code(s): I24.9 - ACUTE ISCHEMIC HEART DISEASE, UNSPECIFIED (2) HLD (hyperlipidemia) Assessment/Plan: on lipitor Code(s): E78.5 - HYPERLIPIDEMIA, UNSPECIFIED (3) HTN (hypertension) Assessment/Plan: observe on current meds Orders 10/14/19 22:00 Metoprolol Tartrate [Lopressor -] 25 mg PO BID Nifedipine ER [Procardia Xl -] 60 mg PO DAILY hydrALAZINE HCL [Apresoline -] 50 mg PO TID Code(s): I10 - ESSENTIAL (PRIMARY) HYPERTENSION
[2019-10-14] MEDS: ATORVASTATIN CA 80 MG TABLET (FP) PO SCH (21:18)
[2019-10-14] MEDS: METOPROLOL TARTRATE 25 MG TABLET (FP) PO SCH (21:18)
[2019-10-14] MEDS: hydrALAZINE HCL 50 MG TABLET (FP) PO SCH (21:18)
[2019-10-15] MEDS: hydrALAZINE HCL 50 MG TABLET (FP) PO SCH ×3 (05:32→21:08)
[2019-10-15 08:29] LABS: ALBUMIN 3.4 g/dl (3.4-5.0); BILIRUBIN,TOTAL 0.7 mg/dl (0.2-1); CALCIUM 8.7 mg/dl (8.5-10); CREATININE 1.6 mg/dl (0.55-1.3); POTASSIUM 4.1 mmol/L (3.5-5.1)
[2019-10-15] MEDS: METOPROLOL TARTRATE 25 MG TABLET (FP) PO SCH ×2 (09:39→21:08)
[2019-10-15] MEDS: NIFEdipine E.R 60 MG TABLET PO SCH (09:39)
[2019-10-15] MEDS ORDERED: CLOPIDOGREL BISULFATE 75 MG TABLET (FP) PO SCH (10:00)
[2019-10-15] MEDS ORDERED: ASPIRIN 81 MG CHEWABLE TABLETS PO SCH (10:00)
--- NOTE | 2019-10-15 13:10 | PN ---
Progress Note, Physician Chief Complaint: sob, elevated bp, left AMA and came back for elevated troponins History of Present Illness: 54 year old male with PMH HTN, HLD, CKD presents to the ED with sob/chest pain, found to have NSTEMI and uncontrolled HTN. - Current Medication List Current Medications: Active Medications Aspirin (Asa -) 81 mg PO DAILY [facility] Last Admin: 10/15/19 09:39 Dose: 81 mg Documented by: Atorvastatin Calcium (Lipitor -) 80 mg PO HS [facility] Last Admin: 10/14/19 21:18 Dose: 80 mg Documented by: Clopidogrel Bisulfate (Plavix -) 75 mg PO DAILY [facility] Last Admin: 10/15/19 09:39 Dose: 75 mg Documented by: Heparin Sodium (Porcine) (Heparin -) 1,000 unit IVPUSH PRN PRN PRN Reason: Heparin Heparin Sodium (Porcine) (Heparin -) 5,000 unit IVPUSH PRN PRN PRN Reason: Heparin Last Admin: 10/14/19 15:15 Dose: 5,000 unit Documented by: Hydralazine HCl (Apresoline -) 50 mg PO TID [facility] Last Admin: 10/15/19 05:32 Dose: 50 mg Documented by: Heparin Sodium/Dextrose (Heparin Infusion -) 25,000 units in 500 mls @ 16 mls/hr IVPB TITR [facility]; Protocol Last Titration: 10/14/19 21:46 Dose: 750 units/hr, 15 mls/hr Documented by: Metoprolol Tartrate (Lopressor -) 25 mg PO BID [facility] Last Admin: 10/15/19 09:39 Dose: 25 mg Documented by: Nifedipine (Procardia Xl -) 60 mg PO DAILY [facility] Last Admin: 10/15/19 09:39 Dose: 60 mg Documented by: - Objective Vital Signs: Vital Signs Temperature 98.7 F 10/15/19 09:34 Pulse Rate 76 10/15/19 09:34 Respiratory Rate 18 10/15/19 09:34 Blood Pressure 162/92 10/15/19 09:34 O2 Sat by Pulse Oximetry (%) 97 10/15/19 05:00 Constitutional: Yes: Well Nourished, No Distress Eyes: Yes: Conjunctiva Clear HENT: Yes: Atraumatic Neck: Yes: Supple, Trachea Midline Cardiovascular: Yes: Regular Rate and Rhythm Respiratory: Yes: Regular, CTA Bilaterally Gastrointestinal: Yes: Normal Bowel Sounds Neurological: Yes: Alert, Oriented Labs: CBC, BMP 10/15/19 06:55 INR, PTT INR 1.15 (0.82-1.09) 10/14/19 15:00 Problem List - Problems (1) NSTEMI (non-ST elevated myocardial infarction) Assessment/Plan: cardiology consult appreciated echo pending asa/plavix, statin, heparin gtt tele may need cath before dc wants to go home livier Code(s): I21.4 - NON-ST ELEVATION (NSTEMI) MYOCARDIAL INFARCTION (2) HLD (hyperlipidemia) Assessment/Plan: total chol 176 started atorvastatin Code(s): E78.5 - HYPERLIPIDEMIA, UNSPECIFIED (3) HTN (hypertension) Assessment/Plan: uncontrolled hydralazine lopressor procardia Code(s): I10 - ESSENTIAL (PRIMARY) HYPERTENSION
--- NOTE | 2019-10-15 14:50 | PN ---
Progress Note (short form) - Note Progress Note: s: no chest pain, palps, dizziness, dyspnea, no further back spasms Current Medications Aspirin (Asa -) 81 mg PO DAILY [facility] Last Admin: 10/15/19 09:39 Dose: 81 mg Documented by: Atorvastatin Calcium (Lipitor -) 80 mg PO HS [facility] Last Admin: 10/14/19 21:18 Dose: 80 mg Documented by: Clopidogrel Bisulfate (Plavix -) 75 mg PO DAILY [facility] Last Admin: 10/15/19 09:39 Dose: 75 mg Documented by: Heparin Sodium (Porcine) (Heparin -) 1,000 unit IVPUSH PRN PRN PRN Reason: Heparin Heparin Sodium (Porcine) (Heparin -) 5,000 unit IVPUSH PRN PRN PRN Reason: Heparin Last Admin: 10/14/19 15:15 Dose: 5,000 unit Documented by: Hydralazine HCl (Apresoline -) 50 mg PO TID [facility] Last Admin: 10/15/19 13:37 Dose: 50 mg Documented by: Heparin Sodium/Dextrose (Heparin Infusion -) 25,000 units in 500 mls @ 16 mls/hr IVPB TITR [facility]; Protocol Last Titration: 10/14/19 21:46 Dose: 750 units/hr, 15 mls/hr Documented by: Metoprolol Tartrate (Lopressor -) 25 mg PO BID [facility] Last Admin: 10/15/19 09:39 Dose: 25 mg Documented by: Nifedipine (Procardia Xl -) 60 mg PO DAILY [facility] Last Admin: 10/15/19 09:39 Dose: 60 mg Documented by: Vital Signs Period Temp Pulse Resp BP Sys/Steward Pulse Ox Last 24 Hr 98.0 F-98.8 F 59-86 15-18 140-196/80-118 97-99 Constitutional: Yes: Well Nourished, No Distress, Calm Eyes: Yes: Conjunctiva Clear, EOM Intact HENT: Yes: Atraumatic, Normocephalic Neck: Yes: Supple, Trachea Midline Respiratory: Yes: Regular, CTA Bilaterally Gastrointestinal: Yes: Normal Bowel Sounds, Soft Cardiovascular: Yes: Regular Rate and Rhythm JVD: No Heart Sounds: Yes: S1, S2 Extremities: No: Cold Edema: No Integumentary: No: Jaundice diaphoresis Neurological: Yes: Alert, Oriented Psychiatric: No: Agitated Assessment/Plan EKG: sinus, nl intervals, lat TWI, no st changes CXR: no acute process echo 05/2019: lvh, otherwise unremarkable tele: sinus 54M h/o HTN, HLD, CKD p/w low/mid back pain and mild sob. nstemi: -trop elevation/pattern c/w acs, trop peak 8.7 -no st changes on ecg -pt has no cardiac sxs, stable -cont hep gtt for 48 hours -start asa, plavix, statin -echo pending -monitoring on tele - d/w interventional at [facility], accepted for transfer for cardiac cath Hypertensive urgency - will resume home meds at higher doses, hydralazine and nifed. HLD -started atorva here
[2019-10-15] MEDS: HEPARIN INFUSION - 25,000 UNITS/500 ML INFUS.BAG IVPB SCH (15:30)
--- NOTE | 2019-10-15 15:47 | ECHO ---
Version: 1 Name: TRIPP MCGINNIS Exam: Adult Echocardiogram Study Date: 10/15/2019, 1:52 PM Age: 54 Years MMode/2D Measurements & Calculations IVSd: 1.41 cm LVIDs: 2.8 cm LVIDd: 5.0 cm LVPWd: 1.46 cm LVOT diam: 3.0 cm Ao root diam: 3.9 cm LA dimension: 3.9 cm Doppler Measurements & Calculations MV E max abril: 88.7 cm/sec MV A max abril: 44.3 cm/sec MV E/A: 2.00 MR max P.0 mmHg Ao max P.5 mmHg Ao V2 max: 169.6 cm/sec PI end-d abril: 162.5 cm/sec TR max abril: 279.1 cm/sec TR max P.2 mmHg Procedure A complete two-dimensional transthoracic echocardiogram was performed (2D, M-mode, Doppler and color flow Doppler). Left Ventricle There is mild concentric left ventricular hypertrophy. The left ventricular ejection fraction is nor mal. Ejection Fraction = 60-65%. The left ventricular wall motion is normal. Right Ventricle The right ventricle is normal in size and function. Atria Normal left and right atrial size and function. Mitral Valve There is mild mitral regurgitation. Tricuspid Valve There is trace tricuspid regurgitation. Right ventricular systolic pressure is normal. Aortic Valve The aortic valve is trileaflet. No hemodynamically significant valvular aortic stenosis. No aortic regurgitation is present. Pulmonic Valve Trace pulmonic valvular regurgitation. Great Vessels Mild aortic root dilatation. Pericardium/Pleura There is no pericardial effusion. Summary Statements There is mild concentric left ventricular hypertrophy. The left ventricular ejection fraction is normal. The right ventricle is normal in size and function. There is mild mitral regurgitation. There is trace tricuspid regurgitation. Trace pulmonic valvular regurgitation. Mild aortic root dilatation. MD Juwan Spann 10/15/2019, 3:46 PM Ordering Physician: Juwan Spann Performed By: Vivian Benitez
[2019-10-15] MEDS: ATORVASTATIN CA 80 MG TABLET (FP) PO SCH (21:08)
[2019-10-16 02:10] VITALS: TEMP 98.8
[2019-10-16] MEDS: hydrALAZINE HCL 50 MG TABLET (FP) PO SCH (05:39)
[2019-10-16] MEDS: METOPROLOL TARTRATE 25 MG TABLET (FP) PO SCH (05:39)
[2019-10-16 06:15] VITALS: BP 188/113; PULSE 71
[2019-10-16 07:47] LABS: HEMATOCRIT 42.7 % (35.4-49); HEMOGLOBIN 14.1 GM/dl (11.7-16.9); MCH 29.9 pg (25.7-33.7); MEAN CELL VOLUME 90.8 fl (80-96); MEAN PLT VOLUME 12.4 fl (7.5-11.1); PLATELET COUNT 159 K/MM3 (134-434); RDW 13.1 % (11.9-15.9); WHITE BLOOD COUNT 4.5 K/mm3 (4.0-10.8)
[2019-10-16 07:57] LABS: ALBUMIN 3.5 g/dl (3.4-5.0); BILIRUBIN,TOTAL 1.2 mg/dl (0.2-1); CREATININE 1.6 mg/dl (0.55-1.3); TOT PROT 6.4 g/dl (6.4-8.2)
[2019-10-16] MEDS ORDERED: hydrALAZINE HCL 50 MG TABLET (FP) PO SCH (08:09)
--- NOTE | 2019-10-16 08:10 | DS ---
Physical Examination Vital Signs: Vital Signs Temperature 98.8 F 10/16/19 05:35 Pulse Rate 71 10/16/19 05:35 Respiratory Rate 18 10/16/19 05:35 Blood Pressure 188/113 H 10/16/19 05:35 O2 Sat by Pulse Oximetry (%) 99 10/16/19 02:08 Cardiovascular: Yes: S1, S2 Respiratory: Yes: Regular, CTA Bilaterally Gastrointestinal: Yes: Normal Bowel Sounds, Soft. No: Tenderness Labs: CBC, BMP 10/16/19 06:45 10/16/19 06:45 Discharge Summary Problems reviewed: Yes Reason For Visit: NON ST ELEVATIONMYOCARDIAL INFARCTION,HYPERTENSION Current Active Problems ACS (acute coronary syndrome) (Acute) HLD (hyperlipidemia) (Acute) HTN (hypertension) (Acute) NSTEMI (non-ST elevated myocardial infarction) (Acute) Hospital Course: - Problems (1) NSTEMI (non-ST elevated myocardial infarction) Assessment/Plan: cardiology consult appreciated echo pending asa/plavix, statin, heparin gtt tele transfer to [place] for cath Code(s): I21.4 - NON-ST ELEVATION (NSTEMI) MYOCARDIAL INFARCTION (2) HLD (hyperlipidemia) Assessment/Plan: total chol 176 started atorvastatin Code(s): E78.5 - HYPERLIPIDEMIA, UNSPECIFIED (3) HTN (hypertension) Assessment/Plan: uncontrolled hydralazine 100 tid lopressor 50 bid procardia 60 consider adding arb w monitoring of renal function Code(s): I10 - ESSENTIAL (PRIMARY) HYPERTENSION (4) CKD Assessment/Plan: monitor renal comsult - Instructions - Home Medications Comprehensive Discharge Medication List: Ambulatory Orders Hydralazine HCl 25 mg PO TID 10/14/19 Nifedipine ER [Procardia XL -] 30 mg PO DAILY 10/14/19
[2019-10-16] MEDS ORDERED: METOPROLOL TARTRATE 50 MG TABLET (FP) PO SCH (08:15)
[2019-10-16] MEDS ORDERED: HEPARIN INFUSION - 25,000 UNITS/500 ML INFUS.BAG IVPB SCH (08:45)
[2019-10-16] MEDS: NIFEdipine E.R 60 MG TABLET PO SCH (09:05)
== END 2019-10-16 09:00 | disposition short-term general hospital (02) | DRG 682 ==
LOC: FER 12:11 → FM/S 12:32
PROVIDERS: ADMIT Family Medicine; ATTEND Family Medicine
DX: I12.9 Hypertensive chronic kidney disease with stage 1 through stage 4 chronic kidney disease, or unspecified chronic kidney disease (principal); I21.4 Non-ST elevation (NSTEMI) myocardial infarction; I24.9 Acute ischemic heart disease, unspecified; I16.0 Hypertensive urgency; N18.9 Chronic kidney disease, unspecified; E78.5 Hyperlipidemia, unspecified; R01.1 Cardiac murmur, unspecified; R06.02 Shortness of breath; M54.5 Low back pain
CPT/HCPCS: 36415; 80053; 80061; 81003; 81015; 82550; 82553; 83036; 83721; 84484; 85027; 85610; 85730; 93005; 93306-TC; 99285-25; J1644